=== PATIENT | female | born 1975 | race Caucasian/White ===

== ENCOUNTER 2016-06-18 10:47 | Day surgery (SDC) | payer BC ==
[2016-06-18] MEDS ORDERED: IV START KIT ONE (10:57)
[2016-06-18] MEDS ORDERED: LACTATED RINGERS 1,000 ML ONE ×2 (10:57→15:30)
[2016-06-18] MEDS ORDERED: CLINDAMYCIN 600 MG PREMIX 50 ML IV ONE (10:57)
[2016-06-18] MEDS ORDERED: CLINDAMYCIN 600 MG PREMIX 50 ML IV PRN (11:00)
[2016-06-18] MEDS ORDERED: GENTAMICIN SULFATE 320 MG in SODIUM CHLORIDE 0.9% 100 ML IV PRN (11:00)
[2016-06-18] MEDS ORDERED: LIDOCAINE 0.5%/EPI 1:200,000 (MULTIDOSE) 50 ML VIAL ONE (12:02)
[2016-06-18] MEDS ORDERED: ESTROGENS,CONJUGATED CREAM 30 G/TUBE VG ONE (12:02)
[2016-06-18] MEDS ORDERED: METRONIDAZOLE 20 APPLIC/70 G TUBE ONE (12:02)
[2016-06-18] MEDS ORDERED: BUPIVACAINE 0.5% (PRES FREE) 30 ML VIAL ONE (12:02)
[2016-06-18] MEDS ORDERED: SODIUM CHLORIDE 0.9% 100 ML ONE (12:10)
[2016-06-18] MEDS ORDERED: MIDAZOLAM HCL 5 MG/5 ML VIAL ONE ×2 (12:12→12:28)
[2016-06-18] MEDS ORDERED: OPIUM/BELLADONNA ALKALOIDS 1 EACH SUP PR ONE (12:12)
[2016-06-18] MEDS ORDERED: NEOMY SULF/POLYMYXIN B SULFATE 1 ML AMP IR ONE (12:12)
[2016-06-18] MEDS ORDERED: FENTANYL 100 MCG/2 ML VIAL ONE (12:13)
[2016-06-18] MEDS ORDERED: DIPHENHYDRAMINE HCL 50 MG/1 ML VIAL ONE (12:31)
[2016-06-18] MEDS ORDERED: METOCLOPRAMIDE HCL 5 MG/ML 2ML VIAL ONE (12:31)
[2016-06-18] MEDS ORDERED: SPINAL PROCEDURAL TRAY 1 EACH ONE (12:31)
[2016-06-18] MEDS ORDERED: ONDANSETRON 4 MG/2ML 2 ML VIAL ONE (12:31)
[2016-06-18] MEDS ORDERED: BUPIVACAINE 0.75% SPINAL AMPUL 2 ML ONE (12:31)
[2016-06-18] MEDS ORDERED: LABETALOL HCL 5 MG/ML 20ML VIAL IV PRN (12:41)
[2016-06-18] MEDS ORDERED: MEPERIDINE 25 MG/ML SYRINGE IV PRN (12:41)
[2016-06-18] MEDS ORDERED: PROMETHAZINE HCL 25 MG/ML VIAL IM PRN (12:41)
[2016-06-18] MEDS ORDERED: MORPHINE SULFATE 4 MG/ML SYRINGE IV PRN (12:41)
[2016-06-18] MEDS ORDERED: ATROPINE SULFATE 0.4 MG/1 ML VIAL IV PRN (12:41)
[2016-06-18] MEDS ORDERED: NALOXONE HCL 0.4 MG/ML VIAL IV PRN (12:41)
[2016-06-18] MEDS ORDERED: ONDANSETRON 4 MG/2ML 2 ML VIAL IV PRN ×2 (12:41→14:41)
[2016-06-18] MEDS ORDERED: LACTATED RINGERS 1,000 ML IV SCH (12:45)
[2016-06-18] MEDS ORDERED: MORPHINE SULFATE 10 MG/ML SYRINGE ONE (12:49)
[2016-06-18] MEDS ORDERED: METHYLENE BLUE 1% 1ML VIAL ONE (13:17)
[2016-06-18] MEDS ORDERED: MIDAZOLAM HCL 1 MG/ML 2ML VIAL ONE (13:23)
[2016-06-18] MEDS ORDERED: HYDROCODONE/ACETAMINOPHEN 5/325MG TABLET PO PRN (14:41)
[2016-06-18] MEDS ORDERED: MORPHINE SULFATE 2 MG/ML SYRINGE IV PRN (14:41)
--- NOTE | 2016-06-18 15:32 | OP ---
KT VELASQUEZ [id number] DATE OF OPERATION: June 18, 2016 SURGEON: Omid Kendrick M.D. SMALL ENGINE SPECIALIST: Edy Ba ANESTHESIA: Spinal. PREOPERATIVE DIAGNOSES: 1. Cystocele with dysfunctional voiding. 2. 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 POSTOPERATIVE DIAGNOSES: 1. Cystocele with dysfunctional voiding. 2. 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 PROCEDURE: 1. CYSTOSCOPY. 2. TROCAR SUPRAPUBIC CYSTOSTOMY TUBE PLACEMENT WITH DRAINAGE. 3. ANTERIOR MESH CYSTOCELE REPAIR. 4. SUBURETHRAL SLING. SPECIMENS: None. INDICATIONS: Patient is a 40-year-old woman with a greater than 1 1/2 year history of increasing urge symptoms with frequency and nocturia. Urinary continence in both stress and urge forms is apparent clinically. On urodynamic studies, urethral hypermobility was present causing the stress incontinence. She had also developed a pattern of sphincteric overcompensation which was actually impairing her ability to void normally. As a precaution before repair of her prolapse problems, which included a cystocele, she underwent physical therapy to make sure that she was able to control her pelvic floor musculature and sphincters appropriately. With that completed, she presents now for repair. FINDINGS: There was a mild amount of squamous metaplasia of the trigone. Ureteral orifices normally disposed. Bladder base displaced inferiorly as expected. Urethral hypermobility present. No focal bladder lesions. There proved to be abundant subvesical and suburethral scar tissue which made the central dissection difficult. There was also internally some peculiar asymmetric scarring projecting back toward the sacrum raising the possibility that at the time of her hysterectomy she had some sort of apical suspension. At the end of the case, urine was seen from both ureteral orifices. PROCEDURE: The patient was identified and brought to the operating room where spinal anesthetic was applied. She was placed in the dorsal lithotomy position. The genital region, lower abdomen and vagina were prepped and draped sterilely. The sites were marked 2 cm above the pubic brim in the midline and at the level of the clitoris in the groin folds on each side. These were treated with 0.5% Marcaine and the suprapubic site was opened with a stab incision. Cystoscopy was then performed with a 17 Guyanese scope using water as an irrigant. Findings are reported above. We used the scope to overdistend the bladder as we placed the patient in Trendelenburg position. Then, we passed a Bard 12 Guyanese trocar suprapubic tube system into the high anterior wall of the bladder under direct vision during expiratory phase, observing with the cystoscope. The trocar and stylet were removed, and the balloon was inflated and seated against the bladder wall. It was allowed to drain throughout the case and ultimately secured at the level of the skin with #2-0 nylon. The cystoscope was withdrawn and replaced with a Renteria catheter to gravity drainage. A posterior weighted speculum was inserted and a [place] type retractor was also positioned for labial retraction. We identified the level of the bladder neck and then just proximal to this, infused 0.5% lidocaine with epinephrine subvesically and laterally and posteriorly we used injectable saline to facilitate hydrodissection. An inverted C incision was made near the level of the bladder neck, and we began dissecting to elevate the vaginal flap away from the bladder base. Centrally, we encountered almost immediately a cystic type space which had some clear mucoid fluid in it and did not seem to communicate with the urethra or bladder. It was largely removed and destroyed. The central line of the subvesical dissection proved to be scarred while the more lateral reaches of the dissection followed normal planes. We completed dissection back toward the apex and got through the pelvic floor on each side. Palpably in the region of the sacrospinous ligament, I could feel unusual rigid scar tissue directed toward the vaginal apex projecting back toward the sacral area. They were lower on the left and higher on the right meaning that we had to follow a course below the scar tissue on the right side to approach the sacrospinous ligament and above it on the left in order to achieve the same goal. A #2-0 Vicryl suture was pre-placed in the anterior vaginal apex in the midline. We used an Uphold Lite graft and the Capio device to pass the carries of the posterior limbs through the sacrospinous ligaments on each side. These were drawn through and the posterior midline of the graft was secured to the preplaced #2-0 Vicryl suture. The graft was positioned carefully, and the anterior lips secured in the midline with #2-0 Vicryl suture. We then transected the retaining sutures and removed the plastic sleeves on the posterior extensions on both sides. With the graft in good position, we irrigated with genitourinary irrigant containing some Betadine paint, and then closed the vaginal wall with a running #2-0 Vicryl suture. We then performed cystoscopy having given the patient intravenous methylene blue. Urine was seen from both ureteral orifices and there was no sign of intrusion or interruption of the urethral or bladder mucosa aside from the suprapubic tube. The cystoscope was withdrawn and replaced with a Renteria catheter, and we turned our attention suburethrally. Tissues there were treated with 0.5% lidocaine centrally and laterally with injectable saline. A transverse incision was made suburethrally, and we elevated tissues, again encountering scar centrally not laterally. The central bed was dissected carefully. At one point, I felt that we were getting quite close to the urethra itself and elected to reinforce the connective tissue around this point. I then repeated cystoscopy and checked the urethra carefully and could find no sign of interruption of the urethral mucosa itself. That completed and having formed a bed for the sling, we opened the previously anesthetized sites in the groin folds on each side and used Halo type carriers to come around the medial aspects of the obturator foramen and deliver the tips into the dissected tunnels. The carriers were then used to draw a polypropylene mesh graft from the vaginal aspect out to the groin folds on each side. Tensioning was completed with a 20 Guyanese sound as a suburethral spacer, and then the plastic sleeves on the graft were removed. We irrigated with genitourinary irrigant containing some Betadine paint, and then closed the suburethral wound with a running #2-0 Vicryl suture. After removing all retractors, I checked with an intraurethral sound to make sure that there was no unwanted upward traction on the urethra. Finding none, we secured the suprapubic tube and packed the vagina with gauze containing Flagyl gel having applied some topical estrogen cream along the suture lines. The groin wounds were closed with DermaBond type material, and then ultimately Benzoin and SteriStrips were applied. Estimated blood loss 100 mL. No early complications. Sponge and needle counts were correct. Patient tolerated the procedure well and was taken in stable condition to the postanesthesia room. cc: Marylou Magallon F.N.P.
[2016-06-18] MEDS ORDERED: HYDROCODONE/ACETAMINOPHEN 5/325MG TABLET ONE (18:56)
== END 2016-06-18 19:15 | disposition home or self-care (01) ==
LOC: SDC 10:47
PROVIDERS: ATTEND Urology
DX: N81.12 Cystocele, lateral (principal); N36.41 Hypermobility of urethra; N39.3 Stress incontinence (female) (male); J45.909 Unspecified asthma, uncomplicated; K58.9 Irritable bowel syndrome, unspecified; K21.9 Gastro-esophageal reflux disease without esophagitis; M79.7 Fibromyalgia; Z87.891 Personal history of nicotine dependence